=== PATIENT | female | born 1980 | race Caucasian/White ===

== ENCOUNTER 2016-08-16 10:33 | Day surgery (SDC) | payer OTHER ==
[2016-08-16] MEDS ORDERED: LIDOCAINE 1% 2 ML INJ ONE (10:48)
[2016-08-16] MEDS ORDERED: fentaNYL 100 MCG/2 ML INJ ONE ×2 (11:41→13:25)
[2016-08-16] MEDS ORDERED: MIDAZOLAM 2 MG/2 ML VIAL ONE (12:05)
[2016-08-16] MEDS ORDERED: LIDO/EPI 1% **Not for Epidural 20 ML MDV ONE (12:05)
[2016-08-16] MEDS ORDERED: SCOPOLAMINE HYDROBROMIDE 1.5 MG PATCH TD ONE (12:07)
[2016-08-16] MEDS ORDERED: PROPOFOL 200 MG/20 ML VIAL ONE (12:17)
[2016-08-16] MEDS ORDERED: ONDANSETRON 4 MG/2 ML VIAL ONE (13:28)
--- NOTE | 2016-08-16 13:47 | GOP ---
[f rep st] OPERATIVE REPORT DATE OF OPERATION: 08/16/2016 PREOPERATIVE DIAGNOSIS: Left submandibular gland stone. POSTOPERATIVE DIAGNOSIS: Left submandibular gland stone. PROCEDURE PLANNED: Transoral excision of left submandibular gland stone. PROCEDURE PERFORMED: Transoral excision of left submandibular gland stone. SURGEON: Mateo Cuellar MD ANESTHESIA: General endotracheal. FINDINGS: Left submandibular stone excised via transoral approach with dissection and preservation of the lingual nerve. ESTIMATED BLOOD LOSS: 15 mL. FLUID REPLACEMENT: 800 mL. COMPLICATIONS: None. DESCRIPTION OF PROCEDURE: Patient is placed on the operating table in supine position. After induction of adequate general endotracheal anesthesia via an ET tube, which was draped out of the right side of the mouth, a bite block was placed. The floor of mouth was palpated and the stone was noted to be present medial to the angle of the mandible on transoral examination. The mucosa overlying the lesion was then incised and then blunt dissection proceeded. The lingual nerve was identified and its integrity was maintained as it passed over the submandibular duct. As dissection proceeded, the stone was easily palpable and encountered. It was then circumferentially dissected and removed, again keeping the lingual nerve under direct visualization. Once the stone had been removed, the cephalad portion of the incision was closed utilizing three 3- 0 chromic sutures. The incision in the floor of mouth was left open so that the salivary secretions could easily drain. At this point, the procedure was terminated. The patient was then awakened, transferred to postanesthesia recovery area in stable condition. /[id number]/MODL MTDD
[2016-08-16] MEDS ORDERED: OXYCODONE/APAP 5/325 TAB ONE (14:35)
[2016-08-16] MEDS ORDERED: PROMETHAZINE HCL 25 MG TAB ONE (15:21)
[2016-08-16] MEDS ORDERED: PROMETHAZINE HCL 25 MG TAB PO ONE (15:30)
== END 2016-08-16 15:50 | disposition home or self-care (01) ==
LOC: FSGY 10:33
PROVIDERS: ATTEND Otolaryngology
PROC: 0CCH0ZZ Extirpation of Matter from Left Submaxillary Gland, Open Approach (ICD-10-PCS; principal; 2016-08-16 11:45)
DX: K11.5 Sialolithiasis (principal); Z88.0 Allergy status to penicillin
CPT/HCPCS: J2250; J2405; J2704; J3010

== ENCOUNTER → 2017-07-30 | Outpatient (CLI) | payer OTHER | LOC: BMCIMAGING 09:51 | PROVIDERS: ATTEND Podiatrist Foot & Ankle Surgery | DX: M89.8X7 Other specified disorders of bone, ankle and foot (principal) ==